=== PATIENT | male | born 1985 | race Caucasian/White ===

== ENCOUNTER 2019-11-16 19:22 | Emergency (ER) | payer OTHER ==
[2019-11-16 19:33] VITALS: TEMP 98.2
[2019-11-16] MEDS ORDERED: LIDOCAINE 1% INJ 10MG/ML (20 ML MDV) SQ ONE (20:17)
[2019-11-16] MEDS ORDERED: LIDOCAINE/EPINEPHR/TETRACAINE 5 ML BOTTLE TOPICAL ONE (20:17)
[2019-11-16] MEDS ORDERED: cefTRIAXone 1,000 MG VIAL (IM USE) IM STA (20:42)
[2019-11-16] MEDS ORDERED: IBUPROFEN 600 MG TAB PO STA (20:43)
--- NOTE | 2019-11-16 20:58 | ED ---
General Adult HPI - General Chief complaint: Skin/Abscess/Foreign Body Stated complaint: Abcess On L Wrist Time Seen by Provider: 11/16/19 19:37 Source: patient, RN notes reviewed Mode of arrival: ambulatory Limitations: no limitations - History of Present Illness Initial comments: Patient is a 34-year-old male presents today with abscess over his left wrist. He reports it started to develop on . He has history of IV drug use and is currently sick at her rehab facility. He reports that he told staff they [place] around it yesterday and is now increased in size and fluctuance. Patient has been on Keflex and Bactrim for the past 2 days. He denies any fever or chills. Denies any significant pain with range of motion of the wrist and hand. - Related Data Previous Rx's Medication Instructions Recorded Cephalexin [Keflex] 500 mg PO Q6HR 10 Days #40 cap 11/16/19 Sulfamethox-Tmp 800-160Mg [Bactrim 2 tab PO Q12HR #40 tab 11/16/19 DS 800-160 mg] Allergies Allergy/AdvReac Type Severity Reaction Status Date / Time No Known Allergies Allergy Verified 11/16/19 19:33 Review of Systems ROS Statement: Those systems with pertinent positive or pertinent negative responses have been documented in the HPI. ROS Other: All systems not noted in ROS Statement are negative. Past Medical History Past Medical History: No Reported History History of Any Multi-Drug Resistant Organisms: None Reported Past Surgical History: No Surgical Hx Reported Smoking Status: Current every day smoker Past Alcohol Use History: None Reported Past Drug Use History: Heroin, Opiates General Exam - General Exam Comments Initial Comments: Alert and oriented 34-year-old male. Limitations: no limitations General appearance: alert, in no apparent distress Head exam: Present: atraumatic, normocephalic, normal inspection Eye exam: Present: normal appearance ENT exam: Present: normal exam, mucous membranes moist Neck exam: Present: normal inspection. Absent: tenderness, meningismus, lymphadenopathy Respiratory exam: Present: normal lung sounds bilaterally. Absent: respiratory distress, wheezes, rales, rhonchi, stridor Cardiovascular Exam: Present: regular rate, normal rhythm, normal heart sounds. Absent: systolic murmur, diastolic murmur, rubs, gallop, clicks GI/Abdominal exam: Present: soft, normal bowel sounds. Absent: distended, tenderness, guarding, rebound, rigid Extremities exam: Present: normal inspection, full ROM, normal capillary refill. Absent: tenderness, pedal edema, joint swelling, calf tenderness Left Upper Arm exam: Present: normal inspection, full ROM Elbow exam: Present: normal inspection, full ROM Forearm Wrist exam: Present: normal inspection, full ROM Hand Wrist exam: Present: full ROM, tenderness, swelling (Patient started swelling and erythema fluctuance over the left dorsum of the wrist. Full range of motion noted. Capillary refill less than 2 seconds. Normal sensation distally.). Absent: normal inspection Neuro motor exam: Present: wrist extension intact, thumb opposition intact, thumb IP flexion intact, thumb adduction intact, fingers 2-5 abduction intact Vascular: Present: normal capillary refill Left Knee exam: Present: normal inspection Back exam: Present: normal inspection Neurological exam: Present: alert, oriented X3, CN II-XII intact Psychiatric exam: Present: normal affect, normal mood Course Vital Signs 11/16/19 19:27 Temperature 98.2 F Pulse Rate 71 Respiratory 18 Rate Blood Pressure 132/88 O2 Sat by Pulse 98 Oximetry Procedures - [place] Protocol (Time Out) Procedure Performed:: I&D Left wrist abscess Performing Provider: Dee Romero Nurse: Xochilt Reynolds Patient Identification (2 identifiers required): Chart, Verbal Patient/Legal Nursery Teacher has Confirmed: Identity, Site Site: Left wrist Site Marked: Yes Site Verified With Patient/Guardian: Yes - Incision & Drainage Indication: Left wrist abscess Size (cm): 2 Anesthetic Used: lidocaine 1% Amount (mLs): 5 I&D Cleaning Method: Iodine Sterile Field Used?: Yes Scalpel Used: #11 I&D Drainage Obtained: Pus, Blood Packing: Iodoform Culture Obtained?: Yes Patient Tolerated Procedure: well, no complications Medical Decision Making - Medical Decision Making 34-year-old male presents with left wrist abscess. History of IV drug use. He presents today with increased redness and swelling. He's been on Bactrim and Keflex for past 2 days. Patient had incision and drainage and a partially 10 mL of fluid was removed. This was packed with iodoform. Discussed the Patient needs to change dressing in 2 days and packing may need to be redone. We'll giv e referral for work: Surgery. Discussed dosing antibiotics and warm compresses over the area. All questions were answered. Disposition Clinical Impression: Abscess of skin of left wrist, IVDU (intravenous drug user) Disposition: HOME SELF-CARE Condition: Good Instructions (If sedation given, give patient instructions): Abscess Incision and Drainage (ED) Additional Instructions: Patient advised to change packing in 2 days. Patient should take Motrin and Tylenol for pain. Completely antibiotic prescription. Follow-up with surgery or orthopedic for recheck. Prescriptions: Sulfamethox-Tmp 800-160Mg [Bactrim DS 800-160 mg] 2 tab PO Q12HR #40 tab Cephalexin [Keflex] 500 mg PO Q6HR 10 Days #40 cap Is patient prescribed a controlled substance at d/c from ED?: No Referrals: None,Stated [Primary Care Provider] - 1-2 days Kenrick Sauer DO [Medical Doctor] - 1-2 days Burton Rios MD [Medical Doctor] - 1-2 days Time of Disposition: 20:56
[2019-11-16] MEDS ORDERED: methylPREDNISolone SOD SUCCI 125 MG/2 ML VIAL IM ONE (21:13)
[2019-11-16] MEDS ORDERED: diphenhydrAMINE 50 MG/ML 1 ML VIAL IM STA (21:13)
[2019-11-16] MEDS ORDERED: LORATADINE 10 MG TAB PO STA (21:47)
[2019-11-16] MEDS ORDERED: HYDROcodone/APAP 5-325MG 1 EACH TAB PO STA (21:57)
[2019-11-16 22:46] VITALS: BP 112/68; PULSE 96; RESP 18
== END 2019-11-16 23:05 | disposition home or self-care (01) ==
LOC: EC 19:22
DX: L02.414 Cutaneous abscess of left upper limb (principal); F19.90 Other psychoactive substance use, unspecified, uncomplicated; F17.200 Nicotine dependence, unspecified, uncomplicated
CPT/HCPCS: 87070; 87205; 99283; 10060; 96372 ×3; J1200; J2930; J2001; J0696